=== PATIENT | male | born 1965 | race African-American/Black ===

== ENCOUNTER 2019-12-20 16:23 | Inpatient (IN) | payer OTHER ==
[2019-12-20 17:54] VITALS: BMI 29.6
--- NOTE | 2019-12-20 18:00 | BHS.RME ---
Substance Use & Tx History - Substance Use History Alcohol Frequency of use: Daily Substance route: Oral Date of Last Use: 12/20/19 (7am) Cocaine-Crack Frequency of use: Daily Substance route: Smoking Date of Last Use: 12/20/19 - Last Treatment Date of last treatment: 1 year ago Treatment type: Substance Use Disorder (MITA) Where was last treatment: Detox (aci) Physical/Psych/Mental Status - Behavior General Behavior: Increased activity (restlessness, agitation) Eye Contact: Normal - Cooperativeness Cooperativeness: Cooperative - Thinking Thought Processes: Logical - Physical Health Problems Is patient presently having any pain?: No Does patient presently have any injuries (include location): No Does patient currently have a fever: No Is patient : No CIWA Nausea/Vomitin-No Nausea/No Vomiting Muscle Tremors: None Anxiety: 0-No Anxiety, at Ease Agitation: 4-Moderately Restless (irritbale) Paroxysmal Sweats: 3 Orientation: 2-Disoriented Date<2 days Tacttile Disturbances: 0-None Auditory Disturbances: 0-None Visual Disturbances: 0-None Headache: 0-None Present CIWA-Ar Total Score: 9
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
[2019-12-20] MEDS ORDERED: METHOCARBAMOL 500 MG TABLET PO PRN (18:13)
[2019-12-20] MEDS ORDERED: ACETAMINOPHEN 325 MG TABLET (FP) PO PRN ×2 (18:13)
[2019-12-20] MEDS ORDERED: IBUPROFEN 400 MG TABLET (FP) PO PRN (18:13)
[2019-12-20] MEDS ORDERED: MAGNESIUM HYDROX 2400MG/30ML ORAL SUSPENSION 30 ML CUP PO PRN (18:13)
[2019-12-20] MEDS ORDERED: ONDANSETRON *ODT* 4 MG TABLET SL PRN (18:13)
[2019-12-20] MEDS ORDERED: MAGNESIUM CITRATE 300 ML BOTTLE PO PRN (18:13)
[2019-12-20] MEDS ORDERED: BISMUTH SUBSALICYLATE 524 MG/30 ML UD PO PRN (18:13)
[2019-12-20] MEDS ORDERED: guaiFENesin 200 MG/10 ML 10 ML UNIT-DOSE CUPS PO PRN (18:13)
[2019-12-20] MEDS ORDERED: DICYCLOMINE HCL 10 MG CAPSULE PO PRN (18:13)
[2019-12-20] MEDS ORDERED: MAG HYDROX/AL HYDROX/SIMETH 30 ML UNIT-DOSE CUP PO PRN (18:13)
[2019-12-20] MEDS ORDERED: MENTHOL/PHENOL 1 EACH UD MM PRN (18:13)
[2019-12-20] MEDS ORDERED: LORazepam 1 MG TABLET PO PRN (18:13)
[2019-12-20] MEDS ORDERED: P-EPHED 60MG/TRIPROLIDI 2.5MG TABLET PO PRN (18:13)
[2019-12-20] MEDS: LORazepam 2 MG TABLET PO SCH (22:24)
[2019-12-20] MEDS: MELATONIN 5 MG TABLETS PO SCH (22:24)
[2019-12-20] MEDS: THIAMINE HCL 100 MG TABLET (FP) PO SCH (22:24)
[2019-12-21] MEDS: LORazepam 2 MG TABLET PO SCH ×4 (06:42→22:26)
--- NOTE | 2019-12-21 09:55 | EKG ---
Test Reason : Blood Pressure : / mmHG Vent. Rate : 085 BPM Atrial Rate : 085 BPM P-R Int : 176 ms QRS Dur : 092 ms QT Int : 384 ms P-R-T Axes : 061 022 049 degrees QTc Int : 456 ms NORMAL SINUS RHYTHM NORMAL ECG NO PREVIOUS ECGS AVAILABLE Confirmed by ALISTAIR PLASCENCIA MD ([id number]) on 12/21/2019 9:55:39 AM Referred By: Confirmed By:ALISTAIR PLASCENCIA MD
[2019-12-21 10:18] LABS: HEMATOCRIT 33.9 % (35.4-49); HEMOGLOBIN 11.2 GM/dL (11.7-16.9); MCH 29.4 pg (25.7-33.7); MEAN CELL VOLUME 89.2 fl (80-96); MEAN PLT VOLUME 8.4 fl (7.5-11.1); PLATELET COUNT 352 K/MM3 (134-434); RDW 14.2 % (11.9-15.9); WHITE BLOOD COUNT 8.1 K/mm3 (4.0-10.0)
[2019-12-21 10:25] LABS: ALBUMIN 3.6 g/dl (3.4-5.0); BILIRUBIN,TOTAL 0.3 mg/dL (0.2-1); BLOOD UREA NITROGEN 27.5 mg/dL (7-18); CALCIUM 9.3 mg/dL (8.5-10.1); CREATININE 2.2 mg/dL (0.55-1.3); POTASSIUM 3.3 mmol/L (3.5-5.1); TOT PROT 7.1 g/dl (6.4-8.2)
[2019-12-21] MEDS: ENALAPRIL MALEATE 10 MG TABLET PO SCH (10:31)
[2019-12-21] MEDS: PRENATAL VITAMINS W/ FOLIC ACID TABLET (FP) PO SCH (10:31)
[2019-12-21] MEDS ORDERED: TETANUS AND DIPHTHERIA TOXOID 0.5 ML DISP.SYRIN IM ONE (12:00)
[2019-12-21] MEDS ORDERED: POTASSIUM CHLORIDE TABS 20 MEQ TABLET.ER (FP) PO ONE (17:00)
--- NOTE | 2019-12-21 17:00 | PN ---
S CIWA - CIWA Score Nausea/Vomitin-Mild Nausea/No Vomiting Muscle Tremors: 3 Anxiety: 3 Agitation: 3 Paroxysmal Sweats: 1-Minimal Palms Moist Orientation: 0-Oriented Tacttile Disturbances: 1-Very Mild Itch/Numbness Auditory Disturbances: 0-None Visual Disturbances: 0-None Headache: 2-Mild CIWA-Ar Total Score: 14 S Progress Note (SOAP) Subjective: alert,irritable,anxious,interrupted sleep,tremor,aching pain in the body and back, Objective: 12/21/19 16:57 Vital Signs Temperature 96.9 F L 12/21/19 13:00 Pulse Rate 92 H 12/21/19 13:00 Respiratory Rate 20 12/21/19 13:00 Blood Pressure 88/59 L 12/21/19 13:00 O2 Sat by Pulse Oximetry (%) 98 12/21/19 13:00 Laboratory Last Values WBC 8.1 K/mm3 (4.0-10.0) 12/21/19 07:00 RBC 3.80 M/mm3 (4.00-5.60) L 12/21/19 07:00 Hgb 11.2 GM/dL (11.7-16.9) L 12/21/19 07:00 Hct 33.9 % (35.4-49) L 12/21/19 07:00 MCV 89.2 fl (80-96) 12/21/19 07:00 MCH 29.4 pg (25.7-33.7) 12/21/19 07:00 MCHC 33.0 g/dl (32.0-35.9) 12/21/19 07:00 RDW 14.2 % (11.9-15.9) 12/21/19 07:00 Plt Count 352 K/MM3 (134-434) 12/21/19 07:00 MPV 8.4 fl (7.5-11.1) 12/21/19 07:00 Sodium 138 mmol/L (136-145) 12/21/19 07:00 Potassium 3.3 mmol/L (3.5-5.1) L 12/21/19 07:00 Chloride 102 mmol/L (98-107) 12/21/19 07:00 Carbon Dioxide 29 mmol/L (21-32) 12/21/19 07:00 Anion Gap 7 MMOL/L (8-16) L 12/21/19 07:00 BUN 27.5 mg/dL (7-18) H 12/21/19 07:00 Creatinine 2.2 mg/dL (0.55-1.3) H 12/21/19 07:00 Est GFR (CKD-EPI)AfAm 37.42 12/21/19 07:00 Est GFR (CKD-EPI)NonAf 32.29 12/21/19 07:00 Random Glucose 109 mg/dL (74-106) H 12/21/19 07:00 Calcium 9.3 mg/dL (8.5-10.1) 12/21/19 07:00 Total Bilirubin 0.3 mg/dL (0.2-1) 12/21/19 07:00 AST 33 U/L (15-37) 12/21/19 07:00 ALT 21 U/L (13-61) 12/21/19 07:00 Alkaline Phosphatase 95 U/L (45-117) 12/21/19 07:00 Total Protein 7.1 g/dl (6.4-8.2) 12/21/19 07:00 Albumin 3.6 g/dl (3.4-5.0) 12/21/19 07:00 Syphilis Serology Non-reactive (NONREACTIVE) 12/20/19 07:00 Assessment: 12/21/19 16:58 withdrawal symptom Plan: continue detox ativan regimen,k is 3.3 willgive k replacement,bun 27,creatine 2.2,r/o renal insufficiency,hydration,repeat bmp in am
[2019-12-21 21:19] LABS: EPI CELLS 5 /uL (0-25.1); HYALINE CASTS 0 /uL (0-3.1); URINE APPEARANCE CLEAR; URINE BACTERIA 7 /uL (0-1359); URINE BILIRUBIN NEGATIVE (NEGATIVE); URINE COLOR YELLOW; URINE GLUCOSE (UA) NEGATIVE (NEGATIVE); URINE KETONE NEGATIVE (NEGATIVE); URINE LEUK ESTERASE TRACE (NEGATIVE); URINE NITRITE NEGATIVE (NEGATIVE); URINE PROTEIN NEGATIVE (NEGATIVE); URINE RBC 1 /uL (0-23.9); URINE UROBILINOGEN 0.2 mg/dL (0.2-1.0); URINE WBC 33 /uL (0-25.8)
[2019-12-21] MEDS: MELATONIN 5 MG TABLETS PO SCH (22:26)
[2019-12-21] MEDS: THIAMINE HCL 100 MG TABLET (FP) PO SCH (22:26)
[2019-12-22] MEDS: LORazepam 1 MG TABLET PO SCH ×4 (05:36→22:27)
--- NOTE | 2019-12-22 10:11 | PN ---
S CIWA - CIWA Score Nausea/Vomitin-No Nausea/No Vomiting Muscle Tremors: 2 Anxiety: 3 Agitation: 0-Normal Activity Paroxysmal Sweats: 3 Orientation: 0-Oriented Tacttile Disturbances: 0-None Auditory Disturbances: 0-None Visual Disturbances: 0-None Headache: 2-Mild CIWA-Ar Total Score: 10 BHS Progress Note (SOAP) Subjective: c/o sweats, anxiety, shakes, and headache. Objective: 12/22/19 10:14 Vital Signs 12/22/19 12/22/19 05:30 08:30 Temperature 98.0 F 97.1 F L Pulse Rate 84 88 Respiratory 16 18 Rate Blood Pressure 101/67 101/69 O2 Sat by Pulse 95 95 Oximetry (%) 12/22/19 12:00 Laboratory Last Values WBC 8.1 K/mm3 (4.0-10.0) 12/21/19 07:00 RBC 3.80 M/mm3 (4.00-5.60) L 12/21/19 07:00 Hgb 11.2 GM/dL (11.7-16.9) L 12/21/19 07:00 Hct 33.9 % (35.4-49) L 12/21/19 07:00 MCV 89.2 fl (80-96) 12/21/19 07:00 MCH 29.4 pg (25.7-33.7) 12/21/19 07:00 MCHC 33.0 g/dl (32.0-35.9) 12/21/19 07:00 RDW 14.2 % (11.9-15.9) 12/21/19 07:00 Plt Count 352 K/MM3 (134-434) 12/21/19 07:00 MPV 8.4 fl (7.5-11.1) 12/21/19 07:00 Sodium 138 mmol/L (136-145) 12/22/19 07:35 Potassium 3.6 mmol/L (3.5-5.1) 12/22/19 07:35 Chloride 104 mmol/L (98-107) 12/22/19 07:35 Carbon Dioxide 28 mmol/L (21-32) 12/22/19 07:35 Anion Gap 7 MMOL/L (8-16) L 12/22/19 07:35 BUN 25.3 mg/dL (7-18) H 12/22/19 07:35 Creatinine 1.7 mg/dL (0.55-1.3) H 12/22/19 07:35 Est GFR (CKD-EPI)AfAm 51.11 12/22/19 07:35 Est GFR (CKD-EPI)NonAf 44.10 12/22/19 07:35 Random Glucose 102 mg/dL (74-106) 12/22/19 07:35 Calcium 8.4 mg/dL (8.5-10.1) L 12/22/19 07:35 Total Bilirubin 0.3 mg/dL (0.2-1) 12/21/19 07:00 AST 33 U/L (15-37) 12/21/19 07:00 ALT 21 U/L (13-61) 12/21/19 07:00 Alkaline Phosphatase 95 U/L (45-117) 12/21/19 07:00 Total Protein 7.1 g/dl (6.4-8.2) 12/21/19 07:00 Albumin 3.6 g/dl (3.4-5.0) 12/21/19 07:00 Urine Color Yellow 12/21/19 18:26 Urine Appearance Clear 12/21/19 18:26 Urine pH 6.0 (5.0-8.0) 12/21/19 18:26 Ur Specific [place] 1.007 (1.010-1.035) L 12/21/19 18:26 Urine Protein Negative (NEGATIVE) 12/21/19 18:26 Urine Glucose (UA) Negative (NEGATIVE) 12/21/19 18:26 Urine Ketones Negative (NEGATIVE) 12/21/19 18:26 Urine Blood Negative (NEGATIVE) 12/21/19 18:26 Urine Nitrite Negative (NEGATIVE) 12/21/19 18:26 Urine Bilirubin Negative (NEGATIVE) 12/21/19 18:26 Urine Urobilinogen 0.2 mg/dL (0.2-1.0) 12/21/19 18:26 Ur Leukocyte Esterase Trace (NEGATIVE) 12/21/19 18:26 Urine WBC (Auto) 33 /uL (0-25.8) 12/21/19 18:26 Urine RBC (Auto) 1 /uL (0-23.9) 12/21/19 18:26 Urine Casts (Auto) 0 /uL (0-3.1) 12/21/19 18:26 U Epithel Cells (Auto) 5 /uL (0-25.1) 12/21/19 18:26 Urine Bacteria (Auto) 7 /uL (0-1359) 12/21/19 18:26 Syphilis Serology Non-reactive (NONREACTIVE) 12/20/19 07:00 Labs noted. Assessment: 12/22/19 10:15 AOX3, in no acute respiratory distress. Full ROM, ambulating in the unit. Withdrawal symptoms. Plan: continue detox.
[2019-12-22] MEDS: POTASSIUM CHLORIDE TABS 20 MEQ TABLET.ER (FP) PO SCH (10:14)
[2019-12-22] MEDS: ENALAPRIL MALEATE 10 MG TABLET PO SCH (10:14)
[2019-12-22] MEDS: PRENATAL VITAMINS W/ FOLIC ACID TABLET (FP) PO SCH (10:14)
[2019-12-22 10:40] LABS: BLOOD UREA NITROGEN 25.3 mg/dL (7-18); CALCIUM 8.4 mg/dL (8.5-10.1); CREATININE 1.7 mg/dL (0.55-1.3); POTASSIUM 3.6 mmol/L (3.5-5.1)
[2019-12-22] MEDS: MELATONIN 5 MG TABLETS PO SCH (22:27)
[2019-12-22] MEDS: THIAMINE HCL 100 MG TABLET (FP) PO SCH (22:27)
[2019-12-23] MEDS ORDERED: LORazepam 0.5 MG TABLET PO PRN
[2019-12-23] MEDS: LORazepam 0.5 MG TABLET PO SCH ×4 (05:29→22:33)
[2019-12-23] MEDS: PRENATAL VITAMINS W/ FOLIC ACID TABLET (FP) PO SCH (10:26)
[2019-12-23] MEDS: POTASSIUM CHLORIDE TABS 20 MEQ TABLET.ER (FP) PO SCH (10:26)
[2019-12-23] MEDS: ENALAPRIL MALEATE 10 MG TABLET PO SCH (10:26)
--- NOTE | 2019-12-23 11:49 | PN ---
S CIWA - CIWA Score Nausea/Vomitin-No Nausea/No Vomiting Muscle Tremors: None Anxiety: 2 Agitation: 1-Slight > Activity Paroxysmal Sweats: 2 Orientation: 0-Oriented Tacttile Disturbances: 0-None Auditory Disturbances: 0-None Visual Disturbances: 0-None Headache: 0-None Present CIWA-Ar Total Score: 5 BHS Progress Note (SOAP) Subjective: c/o mild withdrawal symptoms. Objective: 12/23/19 11:48 Vital Signs 12/23/19 12/23/19 06:19 08:50 Temperature 97.7 F 97.1 F L Pulse Rate 86 80 Respiratory 18 18 Rate Blood Pressure 106/64 93/58 L O2 Sat by Pulse 98 Oximetry (%) Assessment: 12/23/19 11:48 AOX3, in no acute respiratory distress. Full ROM, ambulating in the unit. Mild Withdrawal symptoms. For d/c tomorrow. Plan: continue detox. D/C in AM.
[2019-12-23] MEDS: THIAMINE HCL 100 MG TABLET (FP) PO SCH (22:33)
[2019-12-23] MEDS: MELATONIN 5 MG TABLETS PO SCH (22:33)
[2019-12-24] MEDS ORDERED: LORazepam 0.5 MG TABLET PO ONE (05:00)
--- NOTE | 2019-12-24 09:29 | HP ---
[facility] Rehab Assess/Revision - Admission History Admitted to Rehab from: [facility] Date of Admission to Rehab: 12/24/19 - Vital signs Vital Signs: Vital Signs Period Temp Pulse Resp BP Sys/Maza Pulse Ox Last 24 Hr 97.0 F-98.2 F 78-85 18-18 101-120/63-85 95-100 - Findings Detox History & Physical reviewed: Yes Concur with findings: Yes Comments/Additional Findings: transferred from detox to rehab admission as per protocol Inpatient Rehab Admission - Rehab Decision to Admit Inpatient rehab admission?: Yes - Initial Determination Are CD services needed?: Yes Free of communicable disease: Yes Not in need of hospitalization: Yes - Rehab Admission Criteria Previous failed treatment: Yes Poor recovery environment: Yes Comorbidities: Yes Lacks judgement: Yes Patient is meeting Inpatient Rehab admission criteria:: Yes
[2019-12-24] MEDS: ENALAPRIL MALEATE 10 MG TABLET PO SCH (10:17)
[2019-12-24] MEDS: PRENATAL VITAMINS W/ FOLIC ACID TABLET (FP) PO SCH (10:17)
--- NOTE | 2019-12-24 16:00 | PN ---
S CIWA - CIWA Score Nausea/Vomitin-No Nausea/No Vomiting Muscle Tremors: 1-None Visible, but [place] Anxiety: 1-Mildly Anxious Agitation: 0-Normal Activity Paroxysmal Sweats: No Perspiration Orientation: 0-Oriented Tacttile Disturbances: 0-None Auditory Disturbances: 0-None Visual Disturbances: 0-None Headache: 0-None Present CIWA-Ar Total Score: 2 BHS Progress Note (SOAP) Subjective: 54 years old male was admitted on 12/20/19 for alcohol withdrawal sx management treated with ativan detox regiment mr diggs has completed the ativan regiment and is tolerated well [facility] case discussed with counselor adriana Ms Edison keep mr diggs one day and tomorrow follow up with [facility] where reviewing mr diggs's information not safe discharge mr diggs is staying in detox today and counselor will call resource center Objective: 12/24/19 15:59 Vital Signs - 24 hr 12/23/19 12/23/19 12/24/19 17:17 20:50 06:23 Temperature 97.5 F L 98.2 F 97.0 F L Pulse Rate 85 83 78 Respiratory 18 18 18 Rate Blood Pressure 120/85 113/79 118/73 O2 Sat by Pulse 100 100 Oximetry (%) 12/24/19 12/24/19 08:43 12:57 Temperature 97.7 F 97.4 F L Pulse Rate 94 H 83 Respiratory 20 18 Rate Blood Pressure 133/95 115/72 O2 Sat by Pulse 100 Oximetry (%) Laboratory Tests 12/20/19 12/20/19 12/21/19 07:00 22:30 07:00 WBC 8.1 RBC 3.80 L Hgb 11.2 L Hct 33.9 L MCV 89.2 MCH 29.4 MCHC 33.0 RDW 14.2 Plt Count 352 MPV 8.4 Sodium Potassium Chloride Carbon Dioxide Anion Gap BUN Creatinine Est GFR (CKD-EPI)AfAm Est GFR (CKD-EPI)NonAf Random Glucose Calcium Total Bilirubin AST ALT Alkaline Phosphatase Total Protein Albumin Urine Color Urine Appearance Urine pH Ur Specific [place] Urine Protein Urine Glucose (UA) Urine Ketones Urine Blood Urine Nitrite Urine Bilirubin Urine Urobilinogen Ur Leukocyte Esterase Urine WBC (Auto) Urine RBC (Auto) Urine Casts (Auto) U Epithel Cells (Auto) Urine Bacteria (Auto) Syphilis Serology Non-reactive COVID-19 (ALVAREZ) Not detected 12/21/19 12/21/19 12/22/19 07:00 18:26 07:35 WBC RBC Hgb Hct MCV MCH MCHC RDW Plt Count MPV Sodium 138 138 Potassium 3.3 L 3.6 Chloride 102 104 Carbon Dioxide 29 28 Anion Gap 7 L 7 L BUN 27.5 H 25.3 H Creatinine 2.2 H 1.7 H Est GFR (CKD-EPI)AfAm 37.42 51.11 Est GFR (CKD-EPI)NonAf 32.29 44.10 Random Glucose 109 H 102 Calcium 9.3 8.4 L Total Bilirubin 0.3 AST 33 ALT 21 Alkaline Phosphatase 95 Total Protein 7.1 Albumin 3.6 Urine Color Yellow Urine Appearance Clear Urine pH 6.0 Ur Specific [place] 1.007 L Urine Protein Negative Urine Glucose (UA) Negative Urine Ketones Negative Urine Blood Negative Urine Nitrite Negative Urine Bilirubin Negative Urine Urobilinogen 0.2 Ur Leukocyte Esterase Trace Urine WBC (Auto) 33 Urine RBC (Auto) 1 Urine Casts (Auto) 0 U Epithel Cells (Auto) 5 Urine Bacteria (Auto) 7 Syphilis Serology COVID-19 (ALVAREZ) lab noted Assessment: 12/24/19 15:59 alcohol withdrawal Plan: ativan regiment
[2019-12-24] MEDS: THIAMINE HCL 100 MG TABLET (FP) PO SCH (22:19)
[2019-12-24] MEDS: MELATONIN 5 MG TABLETS PO SCH (22:19)
[2019-12-25 06:37] VITALS: PULSE 82
[2019-12-25 09:38] VITALS: BP 110/73; TEMP 98.2
[2019-12-25] MEDS: ENALAPRIL MALEATE 10 MG TABLET PO SCH (09:58)
[2019-12-25] MEDS: PRENATAL VITAMINS W/ FOLIC ACID TABLET (FP) PO SCH (09:59)
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
== END 2019-12-25 10:40 | disposition home or self-care (01) | DRG 897 ==
LOC: YASAS 16:23 → Y3N 19:04
PROVIDERS: ADMIT Allergy & Immunology; ATTEND Allergy & Immunology
PROC: HZ2ZZZZ Detoxification Services for Substance Abuse Treatment (ICD-10-PCS; principal; 2019-12-20)
DX: F10.230 Alcohol dependence with withdrawal, uncomplicated (principal); F19.24 Other psychoactive substance dependence with psychoactive substance-induced mood disorder; I10 Essential (primary) hypertension; E78.1 Pure hyperglyceridemia; R45.89 Other symptoms and signs involving emotional state; Z91.410 Personal history of adult physical and sexual abuse; Z91.14 Patient's other noncompliance with medication regimen
CPT/HCPCS: 36415; 80048; 80053; 81003; 85027; 86780; 93005; 93010; U0003